=== PATIENT | female | born 1995 | race Caucasian/White ===

== ENCOUNTER 2016-09-02 | Emergency (ER) | payer SELFPAY ==
[2016-09-02 00:14] VITALS: BP 138/78
== END 2016-09-02 02:43 | disposition left against medical advice (07) ==
LOC: ED
DX: Z53.21 Procedure and treatment not carried out due to patient leaving prior to being seen by health care provider (principal)

== ENCOUNTER 2017-08-15 09:49 | Emergency (ER) | payer OTHER ==
[~2017-08-15] VITALS: Ht 162.6 cm; Wt 88.9 kg
[2017-08-15 09:50] VITALS: Ht 162.6 cm; Wt 88.9 kg
[2017-08-15 11:59] VITALS: BP 128/73
== END 2017-08-15 11:59 | disposition home or self-care (01) ==
LOC: ED 09:49
DX: L60.0 Ingrowing nail (principal)
CPT/HCPCS: J2001

== ENCOUNTER 2017-09-11 20:43 | Emergency (ER) | payer OTHER ==
[2017-09-11 21:57] VITALS: BP 150/67
== END 2017-09-11 21:57 | disposition home or self-care (01) ==
LOC: ED 20:43
DX: R11.10 Vomiting, unspecified (principal); R19.7 Diarrhea, unspecified

== ENCOUNTER 2018-01-22 11:56 | Emergency (ER) | payer SELFPAY ==
[~2018-01-22] VITALS: Ht 157.5 cm; Wt 88.0 kg
[2018-01-22 12:08] VITALS: BP 115/72; Ht 157.5 cm; Wt 88.0 kg
== END 2018-01-22 13:22 | disposition home or self-care (01) ==
LOC: ED 11:56
DX: M54.5 Low back pain (principal); Z88.1 Allergy status to other antibiotic agents

== ENCOUNTER 2018-04-17 05:07 | Emergency (ER) | payer SELFPAY ==
[~2018-04-17] VITALS: Ht 160 cm; Wt 90.8 kg
[2018-04-17 05:13] VITALS: Ht 160 cm; Wt 90.8 kg
[2018-04-17 08:24] VITALS: BP 114/63
== END 2018-04-17 08:24 | disposition home or self-care (01) ==
LOC: ED 05:07
DX: N64.4 Mastodynia (principal); Z88.1 Allergy status to other antibiotic agents
CPT/HCPCS: 76641

== ENCOUNTER 2018-09-06 22:08 | Emergency (ER) | payer SELFPAY ==
[~2018-09-06] VITALS: Ht 157.5 cm; Wt 87.1 kg
[2018-09-06 22:20] VITALS: Ht 157.5 cm; Wt 87.1 kg
[2018-09-06 22:43] VITALS: BP 126/79
== END 2018-09-06 22:43 | disposition home or self-care (01) ==
LOC: ED 22:08
DX: R51 Headache (principal); J06.9 Acute upper respiratory infection, unspecified; Z88.1 Allergy status to other antibiotic agents

== ENCOUNTER 2019-04-05 20:06 | Emergency (ER) | payer MEDICAID ==
[~2019-04-05] VITALS: Ht 167.6 cm; Wt 88.9 kg
[2019-04-05 20:10] VITALS: Ht 167.6 cm; Wt 88.9 kg
[2019-04-05 21:16] LABS: BASOPHIL % 0.8 % (0-2); PLATELET COUNT 225 x10^3mcL (130-400)
[2019-04-05 21:22] LABS: CALCIUM 8.5 mg/dL (8.5-10.1); CARBON DIOXIDE 25.9 mmol/L (21-32); CHLORIDE SERUM 106 mmol/L (98-107); CREATININE SERUM 0.8 mg/dL (0.6-1.0); GFR1 > 60 mL/min; GLUCOSE SERUM 166 mg/dL (74-106); POTASSIUM SERUM 3.8 mmol/L (3.5-5.1); SODIUM SERUM 141 mmol/L (136-145)
[2019-04-05 21:28] LABS: ALBUMIN 3.8 g/dL (3.4-5.0); ALKALINE PHOSPHATASE 122 U/L (46-116); ALT/SGPT 33 U/L (14-59); AST/SGOT 17 U/L (15-37); BILIRUBIN TOTAL 0.1 mg/dL (0.20-1.00)
[2019-04-05 22:59] VITALS: BP 130/88
== END 2019-04-05 23:00 | disposition home or self-care (01) ==
LOC: ED 20:06
PROVIDERS: Emergency Medicine
DX: R42 Dizziness and giddiness (principal); R10.32 Left lower quadrant pain; R10.12 Left upper quadrant pain; R11.0 Nausea; I45.10 Unspecified right bundle-branch block; Z98.890 Other specified postprocedural states; Z88.1 Allergy status to other antibiotic agents
CPT/HCPCS: 36415; Q0092

== ENCOUNTER 2019-04-27 16:44 | Emergency (ER) | payer MEDICAID ==
[~2019-04-27] VITALS: Ht 157.5 cm; Wt 87.5 kg
[2019-04-27 16:50] VITALS: Ht 157.5 cm; Wt 87.5 kg
[2019-04-27 18:37] VITALS: BP 106/66
== END 2019-04-27 19:15 | disposition home or self-care (01) ==
LOC: ED 16:44
DX: R07.89 Other chest pain (principal); M25.512 Pain in left shoulder; R20.0 Anesthesia of skin; Z98.890 Other specified postprocedural states; Z88.1 Allergy status to other antibiotic agents
CPT/HCPCS: Q0092

== ENCOUNTER → 2019-05-06 | Outpatient (CLI) | payer MEDICAID | END | disposition home or self-care (01) | LOC: US 08:57 | PROC: BU4CZZZ Ultrasonography of Uterus and Ovaries (ICD-10-PCS; principal; 2019-05-06) | PROC: BH02ZZZ Plain Radiography of Bilateral Breasts (ICD-10-PCS; 2019-05-06) | PROC: BH41ZZZ Ultrasonography of Left Breast (ICD-10-PCS; 2019-05-06) | DX: M54.2 Cervicalgia (principal); N64.4 Mastodynia; R10.2 Pelvic and perineal pain; Z12.31 Encounter for screening mammogram for malignant neoplasm of breast | CPT/HCPCS: 76642; 77066 ==

== ENCOUNTER 2019-05-21 17:49 | Emergency (ER) | payer MEDICAID ==
[~2019-05-21] VITALS: Ht 157.5 cm; Wt 88.5 kg
[2019-05-21 18:00] VITALS: BP 114/67; Ht 157.5 cm; Wt 88.5 kg
== END 2019-05-21 21:47 | disposition home or self-care (01) ==
LOC: ED 17:49
DX: K29.70 Gastritis, unspecified, without bleeding (principal)
CPT/HCPCS: Q0162

== ENCOUNTER → 2019-06-15 | Outpatient (CLI) | payer MEDICAID ==
[2019-06-15 11:06] LABS: BASOPHIL % 0.4 % (0-2); PLATELET COUNT 235 x10^3mcL (130-400)
[2019-06-15 11:33] LABS: ALBUMIN 4.2 g/dL (3.4-5.0); ALKALINE PHOSPHATASE 92 U/L (46-116); ALT/SGPT 37 U/L (14-59); AST/SGOT 16 U/L (15-37); BILIRUBIN TOTAL 0.4 mg/dL (0.20-1.00); CALCIUM 9.1 mg/dL (8.5-10.1); CARBON DIOXIDE 29.4 mmol/L (21-32); CHLORIDE SERUM 99 mmol/L (98-107); CREATININE SERUM 0.7 mg/dL (0.6-1.0); GFR1 > 60 mL/min; GLUCOSE SERUM 86 mg/dL (74-106); POTASSIUM SERUM 3.8 mmol/L (3.5-5.1); SODIUM SERUM 134 mmol/L (136-145); TOTAL PROTEIN, SERUM 8.6 g/dL (6.4-8.2)
== END | disposition home or self-care (01) ==
LOC: LB 10:23
DX: Z00.00 Encounter for general adult medical examination without abnormal findings (principal)
CPT/HCPCS: 84402; 84403